=== PATIENT | female | born 1930 | race Caucasian/White ===

== ENCOUNTER 2019-09-20 10:03 | Emergency (ER) | payer OTHER ==
[~2019-09-20] VITALS: Ht 165.1 cm; Wt 58.7 kg
--- NOTE | 2019-09-20 10:13 | NUR ---
BIB [facility] C/O SUDDEN ONSET OF HEADACHE SINCE THIS MORNING, TO ER BED 8, HOOKED TO LEAD MAINTENANCE TECHNICIAN, CHANGED TO HOSP GOWN, PROVIDED W WARM BLANKET, AOx3, BREATHING EVEN AND UNLABORED, NAD NOTED. AWAITING MD SALOMON
--- NOTE | 2019-09-20 10:14 | NUR ---
POC GLUCOSE 165, MD MADE AWARE
--- NOTE | 2019-09-20 10:14 | NUR ---
DR HESS AT BEDSIDE
[2019-09-20] MEDS ORDERED: ONDANSETRON HCL/PF 4 MG/2 ML VIAL IVP ONE (10:30)
[2019-09-20] MEDS ORDERED: IV NS 0.9% 500 ML BAG IV ONE (10:30)
[2019-09-20] MEDS ORDERED: MORPHINE SULFATE INJ 2 MG/ML DISP.SYRIN IV ONE (10:30)
[2019-09-20] MEDS ORDERED: ONDANSETRON HCL/PF 4 MG/2 ML VIAL ONE (10:31)
[2019-09-20] MEDS ORDERED: MORPHINE SULFATE INJ 4 MG/ML DISP.SYRIN ONE (10:32)
[2019-09-20 10:39] LABS: BASOPHILS # (AUTO) 0.1 /CMM (0.0-0.2); BASOPHILS % (AUTO) 1.9 % (0.0-2.0); EOSINOPHILS % (AUTO) 1.8 % (0.0-6.0); HEMATOCRIT 42 % (33-45); HEMOGLOBIN 14.1 g/dL (11.5-14.8); LYMPHOCYTES # (AUTO) 2.3 /CMM (0.8-4.8); MEAN CORPUSCULAR HGB CONC 33 g/dl (31.0-36.0); MEAN CORPUSCULAR VOLUME 95 fL (82-100); MONOCYTES # (AUTO) 0.6 /CMM (0.1-1.30); MONOCYTES % (AUTO) 7.2 % (2.0-12.0); NEUTROPHILS # (AUTO) 4.7 /CMM (1.8-8.9); NEUTROPHILS % (AUTO) 60.1 % (43.0-81.0); PLATELET COUNT (AUTO) 154 /CMM (150-450); RED BLOOD CELL COUNT(AUTO) 4.45 MIL/uL (4.0-5.2); WHITE BLOOD COUNT (AUTO) 7.8 K/uL (4.3-11.0)
[2019-09-20 10:47] LABS: ALANINE AMINOTRANSFERASE 15 U/L (12-78); ALBUMIN 3.3 g/dL (3.4-5.0); ALKALINE PHOSPHATASE 63 U/L (46-116); ASPARTATE AMINOTRANSFERASE 15 U/L (15-37); BILIRUBIN,DIRECT 0.1 mg/dL (0.0-0.2); BILIRUBIN,TOTAL 0.4 mg/dL (0.2-1.0); CALCIUM, SERUM 9.4 mg/dL (8.5-10.1); CARBON DIOXIDE 26 mmol/L (21-32); CHLORIDE 106 mmol/L (98-107); CREATININE 0.9 mg/dL (0.6-1.3); GLUCOSE 185 mg/dL (74-106); POTASSIUM 4.1 mmol/L (3.5-5.1); SODIUM SERUM 141 mmol/L (136-145); TOTAL PROTEIN, SERUM 6.3 g/dL (6.4-8.2); UREA NITROGEN, BLOOD 15 mg/dL (7-18)
[2019-09-20] MEDS ORDERED: GABA-534 PO (11:22)
[2019-09-20] MEDS ORDERED: POLY17PO4 PO (11:22)
[2019-09-20] MEDS ORDERED: ATEN50TA PO (11:22)
[2019-09-20] MEDS ORDERED: MIRT15TA7 PO (11:22)
[2019-09-20] MEDS ORDERED: LISI-603 PO (11:22)
[2019-09-20] MEDS ORDERED: SIMV-46 PO (11:22)
--- NOTE | 2019-09-20 12:14 | NUR ---
RECEIVED VERBAL ORDER FROM DR HESS OF [facility]. CARRIED OUT
--- NOTE | 2019-09-20 13:08 | NUR ---
TRANSFER INFO: PT WILL GO TO [facility], ACCEPTED BY DR ALMA ROME, RN FOR REPORT [phone], [facility] ETA [id number]
--- NOTE | 2019-09-20 13:12 | NUR ---
REPORT GIVEN TO DEBBIE OF [facility]
[2019-09-20 13:16] VITALS: BP 165/73
--- NOTE | 2019-09-20 13:24 | NUR ---
Patient picked up by Ambulance going to [facility] ER in stable condition. Family at bedside.
[2019-09-20] MEDS ORDERED: IV NS 0.9% 1,000 ML BAG IV ONE (13:30)
== END 2019-09-20 14:00 | disposition short-term general hospital (02) ==
LOC: ER 10:04
DX: R53.1 Weakness (principal); R51 Headache; I10 Essential (primary) hypertension; Z79.899 Other long term (current) drug therapy
CPT/HCPCS: 36415; 70450; 71045; 80048; 80076; 82962; 84443; 84484; 85025; 85730; 93005; 96374; 96375; 99285; J2270; J2405; J7030; J7040

== ENCOUNTER 2019-09-20 19:34 | Emergency (ER) | payer OTHER ==
[~2019-09-20] VITALS: Ht 165.1 cm; Wt 59.0 kg
[~2019-09-20 19:34] MED LIST: ATEN50TA PO; GABA-534 PO; LISI-603 PO; MIRT15TA7 PO; POLY17PO4 PO; SIMV-46 PO
--- NOTE | 2019-09-20 19:47 | NUR ---
PT CAME TO ER BED 9 C/O HEADACHE. PT ARRIVED W/ DAUGHTER AT BEDSIDE STATING THAT SHE WAS HERE EARLIER TODAY THIS MORNING AND WAS TRANSFERRED TO [place] FOR FURTHER TREATMENT OF HER HEADACHE. PT'S DAUGHTER STATES THAT SHE WAS HAVING DINNER WHEN THE PATIENT STATES "OH NO, THE HEADACHE IS COMING BACK AGAIN". PT IS AAOX4. C/O 06/04 HEADACHE. NO SOB. BREATHING EVENLY AND UNLABORED ON ROOM AIR. CONNECTED TO MONITOR. AWAITING MD SALOMON
--- NOTE | 2019-09-20 19:50 | NUR ---
PHLEBTOMIST AT BEDSIDE TO RETRIEVE BLOOD FROM PATIENT.
[2019-09-20] MEDS ORDERED: HYDROMORPHONE INJ 2 MG/ML DISP.SYRIN IV ONE (20:00)
[2019-09-20] MEDS ORDERED: IV NS 0.9% 500 ML BAG IV ONE (20:00)
[2019-09-20] MEDS ORDERED: ONDANSETRON HCL/PF 4 MG/2 ML VIAL IVP ONE (20:00)
[2019-09-20 20:03] LABS: BASOPHILS # (AUTO) 0.1 /CMM (0.0-0.2); BASOPHILS % (AUTO) 1.1 % (0.0-2.0); EOSINOPHILS % (AUTO) 0.8 % (0.0-6.0); HEMATOCRIT 43 % (33-45); HEMOGLOBIN 14.1 g/dL (11.5-14.8); LYMPHOCYTES # (AUTO) 2.9 /CMM (0.8-4.8); LYMPHOCYTES % (AUTO) 31.1 % (20.0-44.0); MEAN CORPUSCULAR HGB CONC 33 g/dl (31.0-36.0); MEAN CORPUSCULAR VOLUME 96 fL (82-100); MONOCYTES % (AUTO) 10.5 % (2.0-12.0); NEUTROPHILS # (AUTO) 5.2 /CMM (1.8-8.9); NEUTROPHILS % (AUTO) 56.5 % (43.0-81.0); PLATELET COUNT (AUTO) 146 /CMM (150-450); WHITE BLOOD COUNT (AUTO) 9.2 K/uL (4.3-11.0)
[2019-09-20 20:11] LABS: CALCIUM, SERUM 8.7 mg/dL (8.5-10.1); CARBON DIOXIDE 28 mmol/L (21-32); CHLORIDE 108 mmol/L (98-107); CREATININE 0.7 mg/dL (0.6-1.3); GLUCOSE 131 mg/dL (74-106); POTASSIUM 3.8 mmol/L (3.5-5.1); SODIUM SERUM 142 mmol/L (136-145); UREA NITROGEN, BLOOD 11 mg/dL (7-18)
[2019-09-20 20:17] LABS: ALANINE AMINOTRANSFERASE 13 U/L (12-78); ALBUMIN 3.3 g/dL (3.4-5.0); ALKALINE PHOSPHATASE 62 U/L (46-116); ASPARTATE AMINOTRANSFERASE 15 U/L (15-37); BILIRUBIN,DIRECT 0.1 mg/dL (0.0-0.2); BILIRUBIN,TOTAL 0.4 mg/dL (0.2-1.0); TOTAL PROTEIN, SERUM 6.2 g/dL (6.4-8.2)
[2019-09-20] MEDS ORDERED: ONDANSETRON HCL/PF 4 MG/2 ML VIAL ONE (20:17)
[2019-09-20] MEDS ORDERED: HYDROMORPHONE 1 MG/1 ML DISP.SYRIN ONE (20:18)
--- NOTE | 2019-09-20 20:52 | NUR ---
AT BEDSIDE SPEAKING WITH PATIENT AND FAMILY MEMBERS REGARDING TRANSFER TO [place].
--- NOTE | 2019-09-20 20:59 | NUR ---
[place] [facility] [place]
--- NOTE | 2019-09-20 21:29 | NUR ---
TRANSFER INFO: PT GOING TO [facility] RN FOR REPORT [phone], ACCEPTED BY DR TRENT. AMBULANCE ETA [id number]
[2019-09-20 21:37] VITALS: BP 160/69
--- NOTE | 2019-09-20 21:41 | NUR ---
REPORT GIVEN TO WAGNER LEARY FROM [facility].
--- NOTE | 2019-09-20 22:07 | NUR ---
REPORT GIVEN TO TRANSPORT TEAM FOR [facility]. AND TRANSFER RESPONSIBILITIES.
== END 2019-09-20 22:18 | disposition short-term general hospital (02) ==
LOC: ER 19:35
DX: R51 Headache (principal); R11.2 Nausea with vomiting, unspecified; R42 Dizziness and giddiness; I10 Essential (primary) hypertension; Z79.899 Other long term (current) drug therapy
CPT/HCPCS: 36415; 70450; 80048; 80076; 85025; 96361; 96374; 96375; 99285; J1170; J2405; J7040

== ENCOUNTER 2019-09-21 21:13 | Emergency (ER) | payer OTHER ==
[~2019-09-21] VITALS: Ht 165.1 cm; Wt 59.0 kg
[2019-09-21 22:13] VITALS: BP 142/63
== END 2019-09-21 22:50 | disposition home or self-care (01) ==
LOC: ER 21:18
DX: R51 Headache (principal); I10 Essential (primary) hypertension; Z79.899 Other long term (current) drug therapy